=== PATIENT | female | born 1985 | race American Indian/Alaskan Native ===

== ENCOUNTER 2020-11-18 19:12 | Emergency (ER) | payer SELFPAY ==
--- NOTE | 2020-11-18 20:16 | CR ---
PROCEDURE INFORMATION: Exam: XR Right Finger(s) Exam date and time: 11/18/2020 7:50 PM Age: 35 years old Clinical indication: Other: ? Metal splinters in thumb? TECHNIQUE: Imaging protocol: XR Right fingers. Views: Minimum 2 views. COMPARISON: No relevant prior studies available. FINDINGS: Bones/joints: There is marked lucency within the distal phalanx of the thumb, especially involving the tuft. No acute fracture is identified. The joints are normally aligned and articulated. Soft tissues: There is soft tissue swelling. No radiopaque foreign body is identified. IMPRESSION: 1. No radiopaque foreign body is identified. 2. Lucency in the distal phalanx of the thumb raising suspicion for osteomyelitis versus bone destruction from underlying neoplasm.
--- NOTE | 2020-11-18 20:20 | EDM.PDOC ---
ED HPI GENERAL MEDICAL PROBLEM - General Chief Complaint: Wound Recheck Stated Complaint: SPLINTER IN RIGHT THUMB Time Seen by Provider: 11/18/20 19:45 Source of Information: Reports: Patient, RN, RN Notes Reviewed History Limitations: Reports: No Limitations - History of Present Illness INITIAL COMMENTS - FREE TEXT/NARRATIVE: Patient is a 35-year-old female who presents to the ER with complaint of right thumb infection. Patient states on / she was putting in a car stereo when she got metal splinters in her right thumb. Had a friend who helped her remove the metal splinters from the thumb and she has been keeping the area clean and applying antibiotic ointment to it daily. She states approximately 2 days ago it began appearing very infected, swollen, erythematous, and draining. Patient denies any fever or chills. Denies any previous health history. Denies chances of . Onset: Gradual Onset Date: 11/08/20 Right Finger-Thumb Pain Score (Numeric/FACES): 6 - Related Data Allergies Allergy/AdvReac Type Severity Reaction Status Date / Time No Known Allergies Allergy Verified 11/18/20 19:26 Home Meds: Home Meds . [No Known Home Meds] 11/18/20 [History] Past Medical History HEENT History: Reports: None Cardiovascular History: Reports: None Respiratory History: Reports: None Gastrointestinal History: Reports: None Genitourinary History: Reports: None [employer] History: Reports: None Musculoskeletal History: Reports: None Neurological History: Reports: None Psychiatric History: Reports: None Endocrine/Metabolic History: Reports: None Hematologic History: Reports: None Immunologic History: Reports: None Oncologic (Cancer) History: Reports: None Dermatologic History: Reports: None - Infectious Disease History Infectious Disease History: Reports: None - Past Surgical History Head Surgeries/Procedures: Reports: None Social & Family History - Tobacco Use Tobacco Use Status *Q: Never Tobacco User - Recreational Drug Use Drug Use in Last 12 Months: Yes Recreational Drug Type: Reports: Methamphetamine Review of Systems - Review of Systems Review Of Systems: Comprehensive ROS is negative, except as noted in HPI. ED EXAM, GENERAL - Physical Exam Exam: See Below Exam Limited By: No Limitations General Appearance: Alert, WD/WN, No Apparent Distress Eye Exam: Bilateral Eye: EOMI, Normal Inspection Ears: Normal External Exam, Hearing Grossly Normal Nose: Normal Inspection Throat/Mouth: Normal Inspection, Normal Voice, No Airway Compromise Head: Atraumatic, Normocephalic Neck: Normal Inspection, Supple, Non-Tender, Full Range of Motion Respiratory/Chest: No Respiratory Distress, Lungs Clear, Normal Breath Sounds, No Accessory Muscle Use, Chest Non-Tender Cardiovascular: Normal Peripheral Pulses, Regular Rate, Rhythm, No Edema, No Gallop, No JVD, No Murmur, No Rub Peripheral Pulses: 2+: Radial (L), Radial (R) GI/Abdominal: Normal Bowel Sounds, Soft, Non-Tender (Female) Exam: Deferred Rectal (Female) Exam: Deferred Back Exam: Normal Inspection, Full Range of Motion, NT Extremities: Normal Inspection, Normal Range of Motion, Non-Tender, No Pedal E jeanette, Normal Capillary Refill, Other (right thumb is quite swollen, erythematous, oozing serous/sanguinous drainage) Neurological: Alert, Oriented, CN II-XII Intact, Normal Cognition, Normal Gait, Normal Reflexes, No Motor/Sensory Deficits Psychiatric: Normal Affect, Normal Mood Skin Exam: Warm, Erythema, Other (swelling, erythema, drainage from distal right thumb) Lymphatic: No Adenopathy Course - Vital Signs Last Recorded V/S: Last Vital Signs Temp 98 F 11/18/20 19:27 Pulse 98 11/18/20 19:27 Resp 16 11/18/20 19:27 BP 147/93 H 11/18/20 19:27 Pulse Ox 98 11/18/20 19:27 - Orders/Labs/Meds Orders: Active Orders 24 hr Category Date Time Status CULTURE BLOOD [BC] Stat Lab 11/18/20 20:15 Results CULTURE BLOOD [BC] Stat Lab 11/18/20 20:45 Results CULTURE WOUND [RM] Urgent Lab 11/18/20 19:23 Received Blood Culture x2 Reflex Set [OM.PC] Stat Oth 11/18/20 20:11 Ordered Labs: Laboratory Tests 11/18/20 11/18/20 11/18/20 Range/Units 20:15 20:15 20:15 WBC 8.9 (5.0-10.0) 10^3/uL RBC 4.65 (4.2-5.4) 10^6/uL Hgb 13.0 (12.0-16.0) g/dL Hct 38.2 (37.0-47.0) % MCV 82.2 (80-100) fL MCH 28.0 (27.0-34.0) pg MCHC 34.0 (33.0-35.0) g/dL Plt Count 324 (150-450) 10^3/uL Neut % (Auto) 58.5 (42.2-75.2) % Lymph % (Auto) 32.6 (20.5-50.1) % [place] % (Auto) 7.0 (2-8) % Eos % (Auto) 1.8 (1.0-3.0) % Baso % (Auto) 0.1 (0.0-1.0) % Sodium 139 (136-145) mmol/L Potassium 4.0 (3.5-5.1) mmol/L Chloride 103 (98-107) mmol/L Carbon Dioxide 25 (21-32) mmol/L Anion Gap 15.0 H (7-13) mEq/L BUN 14 (7-18) mg/dL Creatinine 0.71 (0.55-1.02) mg/dL Est Cr Clr Drug Dosing 113.69 mL/min Estimated GFR (MDRD) > 60 BUN/Creatinine Ratio 19.7 (No establ ref range) Glucose 123 H (74-99) mg/dL Lactic Acid 0.8 (0.4-2.0) mmol/L Calcium 8.5 (8.5-10.1) mg/dL Total Bilirubin 0.3 (0.2-1.0) mg/dL AST 13 L (15-37) U/L ALT 26 (14-59) U/L Alkaline Phosphatase 149 H (46-116) U/L C-Reactive Protein 2.4 H (0.0-0.9) mg/dL Total Protein 7.4 (6.4-8.2) g/dL Albumin 3.4 (3.4-5.0) g/dL Globulin 4.0 Albumin/Globulin Ratio 0.9 - Radiology Interpretation Free Text/Narrative:: Xray Right thumb: PROCEDURE INFORMATION: Exam: XR Right Finger(s) Exam date and time: 11/18/2020 7:50 PM Age: 35 years old Clinical indication: Other: ? Metal splinters in thumb? TECHNIQUE: Imaging protocol: XR Right fingers. Views: Minimum 2 views. COMPARISON: No relevant prior studies available. FINDINGS: Bones/joints: There is marked lucency within the distal phalanx of the thumb, especially involving the tuft. No acute fracture is identified. The joints are normally aligned and articulated. Soft tissues: There is soft tissue swelling. No radiopaque foreign body is identified. IMPRESSION: 1. No radiopaque foreign body is identified. 2. Lucency in the distal phalanx of the thumb raising suspicion for osteomyelitis versus bone destruction from underlying neoplasm. Thank you for allowing us to participate in the care of your patient. Dictated and Authenticated by: Linda Pritchard MD 11/18/2020 8:16 PM Central Time ([place] & [place]) See rad report - Re-Assessments/Exams Free Text/Narrative Re-Assessment/Exam: 11/18/20 22:06 Discussed patient case with Dr. Dowling who states he would like to see the patient in the ER in [place] tomorrow. He would not like any antibiotics given at this time. 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 Dowling Pack a bag and plan to stay possibly 1-2 nights NOTHING TO EAT OR DRINK AFTER MIDNIGHT TONIGHT May use Tylenol as directed for pain Keep area clean and dry Sepsis Event Note (ED) - Evaluation Sepsis Screening Result: No Definite Risk - Focused Exam Vital Signs: Vital Signs Temp Pulse Resp BP Pulse Ox 11/18/20 19:27 98 F 98 16 147/93 H 98 - My Orders Last 24 Hours: My Active Orders 11/18/20 19:23 CULTURE WOUND [RM] Urgent 11/18/20 20:11 Blood Culture x2 Reflex Set [OM.PC] Stat 11/18/20 20:15 CULTURE BLOOD [BC] Stat 11/18/20 20:45 CULTURE BLOOD [BC] Stat - Assessment/Plan Last 24 Hours: My Active Orders 11/18/20 19:23 CULTURE WOUND [RM] Urgent 11/18/20 20:11 Blood Culture x2 Reflex Set [OM.PC] Stat 11/18/20 20:15 CULTURE BLOOD [BC] Stat 11/18/20 20:45 CULTURE BLOOD [BC] Stat
[2020-11-18 20:47] LABS: CHLORIDE,CL 103 mmol/L (98-107); SODIUM,NA 139 mmol/L (136-145)
== END 2020-11-18 21:20 | disposition home or self-care (01) ==
LOC: DL.ED 19:12
DX: S60.351A Superficial foreign body of right thumb, initial encounter (principal); L08.9 Local infection of the skin and subcutaneous tissue, unspecified; M89.50 Osteolysis, unspecified site; W45.8XXA Other foreign body or object entering through skin, initial encounter
CPT/HCPCS: 36415; 73140-F5; 80053; 83605; 85025; 86140; 87040; 87070; 87077; 87186; 99283; 99283-25

== ENCOUNTER 2024-08-09 18:01 | Emergency (ER) | payer OTHER, MEDICAID ==
[2024-08-09 16:51] LABS: BASOPHILS PERCENT AUTO 0.1 % (0.0-1.0); EOSINOPHILS PERCENT AUTO 0.3 % (1.0-3.0); HEMOGLOBIN 14.3 g/dL (12.0-16.0); LYMPHOCYTES PERCENT AUTO 25.6 % (20.5-50.1); MEAN CORPUSCULAR HEMOGLOBIN 27.3 pg (27.0-34.0); MEAN CORPUSCULAR HGB CONC 33.3 g/dL (33.0-35.0); MEAN CORPUSCULAR VOLUME 82.2 fL (80-100); MONOCYTES PERCENT AUTO 3.8 % (2-8); NEUTROPHILS PERCENT AUTO 70.2 % (42.2-75.2); PLATELET COUNT,PLT 318 10^3/uL (150-450); RED BLOOD CELL COUNT 5.23 10^6/uL (4.2-5.4); WHITE BLOOD CELL COUNT,WBC 9.4 10^3/uL (5.0-10.0)
[2024-08-09 17:10] LABS: HCG QUALITATIVE,SERUM NEGATIVE (NEGATIVE)
[2024-08-09 17:11] LABS: A/G RATIO 0.9; ALANINE AMINOTRANSFERASE,ALT 32 U/L (14-59); ALBUMIN 3.6 g/dL (3.4-5.0); ALKALINE PHOSPHATASE 142 U/L (46-116); ANION GAP 17.5 mEq/L (7-13); ASPARTATE AMNIOTRANSFERASE,AST 19 U/L (15-37); BILIRUBIN TOTAL 0.3 mg/dL (0.2-1.0); BLOOD UREA NITROGEN,BUN 16 mg/dL (7-18); BUN/CREATININE RATIO 17.4 (No establ ref range); CALCIUM 8.9 mg/dL (8.5-10.1); CARBON DIOXIDE,CO2 19 mmol/L (21-32); CHLORIDE,CL 105 mmol/L (98-107); CREATININE 0.92 mg/dL (0.55-1.02); EST CRCL DRUG DOSING (CG) 84.46 mL/min; ESTIMATED GFR 82 mL/min (>=60); ETHANOL BLOOD MEDICAL 185 mg/dL (0); GLUCOSE RANDOM 268 mg/dL (70-99); POTASSIUM,K 3.5 mmol/L (3.5-5.1); PROTEIN TOTAL,TP 7.5 g/dL (6.4-8.2); SODIUM,NA 138 mmol/L (136-145)
[2024-08-09] MEDS: Lidocaine 1% 5 ML VIAL INJECT ONE (17:15)
[2024-08-09] MEDS: Diphtheria,Pertussis(Acell),Tetanus Vaccine 0.5 ML Syringe IM ONE (18:17)
== END 2024-08-09 18:19 | disposition home or self-care (01) ==
LOC: DL.ED 18:01
DX: S01.81XA Laceration without foreign body of other part of head, initial encounter (principal); Z23 Encounter for immunization; V89.2XXA Person injured in unspecified motor-vehicle accident, traffic, initial encounter
CPT/HCPCS: 12011; 36415; 70450; 71045; 72125; 73030-RT; 80053; 80307; 82947; 84703; 85025; 90471; 90715; 99284; 99285-25; J3490